=== PATIENT | female | born 2000 | race Caucasian/White ===

== ENCOUNTER 2019-03-15 10:30 | Inpatient (IN) | payer BC ==
[2019-03-15] MEDS ORDERED: Sodium Chloride 0.9% 2.5 ML Syringe FLUSH PRN (10:46)
[2019-03-15] MEDS ORDERED: Terbutaline 1 MG/ML SDV SUBCUT PRN (10:46)
[2019-03-15] MEDS ORDERED: Sodium Chloride 0.9% 10 ML SDV IV PRN (10:46)
[2019-03-15] MEDS ORDERED: Sodium Chloride 0.9% 10 ML Syringe FLUSH PRN (10:46)
[2019-03-15] MEDS ORDERED: Misoprostol 200 MCG Tab PO PRN (10:46)
[2019-03-15] MEDS ORDERED: Carboprost Tromethamine 250 MCG/1 ML Amp IM PRN (10:46)
[2019-03-15] MEDS ORDERED: Water For Irrigation,Sterile 1,000 ML Container IRR PRN (10:46)
[2019-03-15] MEDS ORDERED: Lidocaine 1% 50 ML MDV INJECT PRN (10:46)
[2019-03-15] MEDS ORDERED: Tranexamic Acid 1,000 MG in Sodium Chloride 0.9% 100 ML IV PRN (10:46)
[2019-03-15] MEDS ORDERED: Methylergonovine 0.2 MG/1 ML Amp IM PRN (10:46)
[2019-03-15] MEDS ORDERED: Nalbuphine 10 MG/1 ML Vial IVPUSH PRN (10:46)
[2019-03-15] MEDS ORDERED: Ondansetron 4 MG/2 ML SDV IV PRN (10:46)
[2019-03-15] MEDS ORDERED: Oxytocin/0.9 % Sodium Chloride 30 UNIT/500 ML BAG IV SCH ×2 (11:00)
[2019-03-15] MEDS ORDERED: Misoprostol 25 MCG (1/4 of 100 MCG) Tab VAG PRN (11:30)
[2019-03-15] MEDS: Misoprostol 25 MCG (1/4 of 100 MCG) Tab VAG PRN ×3 (11:47→22:58)
[2019-03-15] MEDS: Lactated Ringers 1,000 ML IV SCH (21:10)
[2019-03-16] MEDS: Butorphanol 1 MG/ML SDV IVPUSH PRN ×2 (04:04→08:01)
[2019-03-16] MEDS: Lactated Ringers 1,000 ML IV SCH ×3 (04:46→19:03)
[2019-03-16] MEDS: Misoprostol 25 MCG (1/4 of 100 MCG) Tab VAG PRN (05:21)
--- NOTE | 2019-03-16 08:56 | PCM.PREANE ---
Preanesthetic Assessment - Anesthesia/Transfusion/Family Hx Anesthesia History: No Prior Anesthesia Family History of Anesthesia Reaction: No Transfusion History: No Prior Transfusion(s) - Review of Systems General: No Symptoms Pulmonary: No Symptoms Cardiovascular: No Symptoms Gastrointestinal: No Symptoms Neurological: No Symptoms Other: Reports: None - Physical Assessment Height: 5 ft 8 in Weight: 99.79 kg ASA Class: 2 Mental Status: Alert & Oriented x3 Airway Class: Mallampati = 2 Dentition: Reports: Normal Dentition Thyro-Mental Finger Breadths: 3 Mouth Opening Finger Breadths: 3 ROM/Head Extension: Full Lungs: Clear to Auscultation, Normal Respiratory Effort Cardiovascular: Regular Rate, Regular Rhythm - Lab Values: Laboratory Last Values WBC 10.39 K/uL (4.0-11.0) 03/15/19 11:04 RBC 4.67 M/uL (4.30-5.90) 03/15/19 11:04 Hgb 13.0 g/dL (12.0-16.0) 03/15/19 11:04 Hct 39.8 % (36.0-46.0) 03/15/19 11:04 MCV 85.2 fL (80.0-98.0) 03/15/19 11:04 MCH 27.8 pg (27.0-32.0) 03/15/19 11:04 MCHC 32.7 g/dL (31.0-37.0) 03/15/19 11:04 RDW Std Deviation 40.3 fl (28.0-62.0) 03/15/19 11:04 RDW Coeff of Cookie 13 % (11.0-15.0) 03/15/19 11:04 Plt Count 183 K/uL (150-400) 03/15/19 11:04 MPV 10.40 fL (7.40-12.00) 03/15/19 11:04 Nucleated RBC % 0.0 /100WBC 03/15/19 11:04 Nucleated RBCs # 0 K/uL 03/15/19 11:04 Blood Type O POSITIVE 03/15/19 11:04 Antibody Screen NEGATIVE 03/15/19 11:04 - Allergies Allergies/Adverse Reactions: Allergies Allergy/AdvReac Type Severity Reaction Status Date / Time melon Allergy Itching Verified 03/15/19 10:46 peanut Allergy Rash Verified 09/01/15 21:53 pollen extracts Allergy Rash Verified 09/01/15 21:53 nuts Allergy Itching Uncoded 03/15/19 10:45 - Acknowledgements Anesthesia Type Planned: Epidural Pt an Appropriate Candidate for the Planned Anesthesia: Yes Alternatives and Risks of Anesthesia Discussed w Pt/Guardian: Yes Pt/Guardian Understands and Agrees with Anesthesia Plan: Yes PreAnesthesia Questionnaire - Past Health History Medical/Surgical History: Denies Medical/Surgical History HEENT History: Reports: None Cardiovascular History: Reports: None Respiratory History: Reports: None Gastrointestinal History: Reports: GERD Genitourinary History: Reports: None [employer] History: Reports: : 2 Para: 0 LMP (Approximate): Musculoskeletal History: Reports: None Neurological History: Reports: None Psychiatric History: Reports: None Endocrine/Metabolic History: Reports: None Hematologic History: Reports: None Immunologic History: Reports: None Oncologic (Cancer) History: Reports: None Dermatologic History: Reports: None - Infectious Disease History Infectious Disease History: Reports: None - SUBSTANCE USE Smoking Status *Q: Never Smoker Tobacco Use Within Last Twelve Months: No Second Hand Smoke Exposure: No Recreational Drug Use History: No - HOME MEDS Home Medications: Home Meds PNV #116/Iron Fumarate/FA/DHA [Expecta Combo Pack] 02/20/19 [History] - CURRENT (IN HOUSE) MEDS Current Meds: Current Medications Butorphanol Tartrate (Stadol) 1 mg IVPUSH Q1H PRN PRN Reason: Pain Last Admin: 03/16/19 08:01 Dose: 1 mg Carboprost Tromethamine (Hemabate Ds) 250 mcg IM ASDIRECTED PRN PRN Reason: Post Hemorrhage Lactated Ringer's (Ringers, Lactated) 1,000 mls @ 150 mls/hr IV ASDIRECTED FABIOLA Last Admin: 03/16/19 04:46 Dose: 999 mls/hr Oxytocin/Sodium Chloride (Oxytocin 30 Unit/500 Ml-Ns) 30 unit in 500 mls @ 999 mls/hr IV TITRATE FABIOLA Oxytocin/Sodium Chloride (Oxytocin 30 Unit/500 Ml-Ns) 30 unit in 500 mls @ 2 mls/hr IV TITRATE FABIOLA; Protocol Tranexamic Acid 1,000 mg/ (Sodium Chloride) 110 mls @ 660 mls/hr IV ONETIME PRN PRN Reason: Bleeding Lidocaine HCl (Xylocaine 1%) 50 ml INJECT ONETIME PRN PRN Reason: Laceration repair Methylergonovine Maleate (Methergine) 0.2 mg IM ASDIRECTED PRN PRN Reason: Post Hemorrhage Misoprostol (Cytotec) 200 mcg PO ONETIME PRN PRN Reason: Post Hemorrhage Misoprostol (Cytotec) 25 mcg VAG ONETIME PRN PRN Reason: Cervical Ripening Misoprostol (Cytotec) 25 mcg VAG Q4H PRN PRN Reason: Cervical Ripening Last Admin: 03/16/19 05:21 Dose: 25 mcg Nalbuphine HCl (Nubain) 10 mg IVPUSH Q1H PRN PRN Reason: Pain (severe 7-10) Ondansetron HCl (Zofran) 4 mg IV Q6H PRN PRN Reason: Nausea/Vomiting Sodium Chloride (Saline Flush) 10 ml FLUSH ASDIRECTED PRN PRN Reason: Keep Vein Open Sodium Chloride (Saline Flush) 2.5 ml FLUSH ASDIRECTED PRN PRN Reason: Keep Vein Open Sodium Chloride (Normal Saline) 10 ml IV ASDIRECTED PRN PRN Reason: IV Use Sterile Water (Sterile Water For Irrigation) 1,000 ml IRR ASDIRECTED PRN PRN Reason: delivery Terbutaline Sulfate (Brethine) 0.25 mg SUBCUT ASDIRECTED PRN PRN Reason: Tacysystole
[2019-03-16] MEDS ORDERED: Sodium Chloride 0.9% 1,000 ML IRR PRN (11:28)
[2019-03-16] MEDS ORDERED: Oxytocin/0.9 % Sodium Chloride 30 UNIT/500 ML BAG IV SCH (14:45)
--- NOTE | 2019-03-16 20:32 | PCM.DEL ---
L & D Note - General Info Date of Service: 03/16/19 Mother's Due Date: 03/07/19 - Delivery Note Labor: Induced by Oxytocin Cervical Ripening Method: Misoprostil Delivery Outcome: Livebirth Presentation: Left Occiput Anterior (THA) Nuchal Cord: None Prep: Other Anesthesia Type: Epidural Amniotic Fluid Description: Meconium Stained Episiotomy Type: None Laceration: None Placenta: Intact, Spontaneous Cord: 3 Vessels Estimated Blood Loss: 200 Resuscitation Needed: No Gepp: Suctioned Score 1 min: 8 Score 5 min: 9 Delivery Comments (Free Text/Narrative):: Liveborn male. - General Info Date of Service: 03/16/19 - Patient Data Weight - Most Recent: 99.79 kg Med Orders - Current: Current Medications Butorphanol Tartrate (Stadol) 1 mg IVPUSH Q1H PRN PRN Reason: Pain Last Admin: 03/16/19 08:01 Dose: 1 mg Carboprost Tromethamine (Hemabate Ds) 250 mcg IM ASDIRECTED PRN PRN Reason: Post Hemorrhage Lactated Ringer's (Ringers, Lactated) 1,000 mls @ 150 mls/hr IV ASDIRECTED FABIOLA Last Admin: 03/16/19 19:03 Dose: 150 mls/hr Oxytocin/Sodium Chloride (Oxytocin 30 Unit/500 Ml-Ns) 30 unit in 500 mls @ 999 mls/hr IV TITRATE FABIOLA Oxytocin/Sodium Chloride (Oxytocin 30 Unit/500 Ml-Ns) 30 unit in 500 mls @ 2 mls/hr IV TITRATE FABIOLA; Protocol Tranexamic Acid 1,000 mg/ (Sodium Chloride) 110 mls @ 660 mls/hr IV ONETIME PRN PRN Reason: Bleeding Sodium Chloride (Sodium Chloride 0.9%) 1,000 mls @ 500 mls/hr IRR ASDIRECTED PRN PRN Reason: Amnioinfusion. Oxytocin/Sodium Chloride (Oxytocin 30 Unit/500 Ml-Ns) 30 unit in 500 mls @ 1 mls/hr IV TITRATE FABIOLA; Protocol Last Infusion: 03/16/19 17:48 Dose: 5 munits/min, 5 mls/hr Lidocaine HCl (Xylocaine 1%) 50 ml INJECT ONETIME PRN PRN Reason: Laceration repair Methylergonovine Maleate (Methergine) 0.2 mg IM ASDIRECTED PRN PRN Reason: Post Hemorrhage Misoprostol (Cytotec) 200 mcg PO ONETIME PRN PRN Reason: Post Hemorrhage Misoprostol (Cytotec) 25 mcg VAG ONETIME PRN PRN Reason: Cervical Ripening Misoprostol (Cytotec) 25 mcg VAG Q4H PRN PRN Reason: Cervical Ripening Last Admin: 03/16/19 05:21 Dose: 25 mcg Nalbuphine HCl (Nubain) 10 mg IVPUSH Q1H PRN PRN Reason: Pain (severe 7-10) Ondansetron HCl (Zofran) 4 mg IV Q6H PRN PRN Reason: Nausea/Vomiting Sodium Chloride (Saline Flush) 10 ml FLUSH ASDIRECTED PRN PRN Reason: Keep Vein Open Sodium Chloride (Saline Flush) 2.5 ml FLUSH ASDIRECTED PRN PRN Reason: Keep Vein Open Sodium Chloride (Normal Saline) 10 ml IV ASDIRECTED PRN PRN Reason: IV Use Sterile Water (Sterile Water For Irrigation) 1,000 ml IRR ASDIRECTED PRN PRN Reason: delivery Terbutaline Sulfate (Brethine) 0.25 mg SUBCUT ASDIRECTED PRN PRN Reason: Tacysystole Last Admin: 03/16/19 11:24 Dose: 0.25 mg Discontinued Medications Fentanyl/Bupivacaine HCl (Wzrisfem-Mhlok-Hr 2 Mcg/Ml-0.125%) Confirm Administered Dose 100 mls @ as directed .ROUTE .STK-MED ONE Stop: 03/16/19 09:02 Fentanyl/Bupivacaine HCl (Xaeyttfl-Wjovc-Ha 2 Mcg/Ml-0.125%) Confirm Administered Dose 100 mls @ as directed .ROUTE .STK-MED ONE Stop: 03/16/19 17:26 - Problem List & Annotations (1) Vaginal delivery SNOMED Code(s): 199366397 Code(s): O80 - ENCOUNTER FOR FULL-TERM UNCOMPLICATED DELIVERY Status: Acute Current Visit: Yes - Problem List Review Problem List Initiated/Reviewed/Updated: Yes - My Orders Last 24 Hours: My Active Orders 03/16/19 11:28 Sodium Chloride 0.9% 1,000 ml IRR ASDIRECTED 03/16/19 14:45 Oxytocin/0.9 % Sodium Chloride [Oxytocin 30 Unit/500 ML-NS] 30 unit in 500 ml IV TITRATE
[2019-03-16] MEDS ORDERED: oxyCODONE 5 MG Tab PO PRN (20:33)
[2019-03-16] MEDS ORDERED: Ibuprofen 400 MG Tab PO PRN (20:33)
[2019-03-16] MEDS ORDERED: Acetaminophen 500 MG Tab PO PRN ×2 (20:33)
[2019-03-16] MEDS ORDERED: Witch Hazel Medicated Pads 40/Jar TOP PRN (20:33)
[2019-03-16] MEDS ORDERED: Benzocaine/Menthol 20%-0.5% Spray 78 GM Cannister TOP PRN (20:33)
[2019-03-16] MEDS ORDERED: Docusate Sodium 100 MG Cap PO PRN (20:33)
[2019-03-16] MEDS ORDERED: Bisacodyl 10 MG Supp RECTAL PRN (20:33)
[2019-03-16] MEDS: Ibuprofen 800 MG Tab PO PRN (23:30)
--- NOTE | 2019-03-16 23:48 | OR ---
SURGEON: Rena Helton M.D. DATE OF PROCEDURE: 03/16/2019 PREOPERATIVE DIAGNOSIS: 41 and 3/7th weeks intrauterine , induction of labor. POSTOPERATIVE DIAGNOSIS: 41 and 3/7th weeks intrauterine , induction of labor. PROCEDURE PERFORMED: Cytotec, Pitocin induction of labor term spontaneous vaginal delivery. ANESTHESIA: Epidural. ESTIMATED BLOOD LOSS: Less than 200 mL. FINDINGS: Liveborn male, scores 8 and 9. Weight is pending at the time of dictation. Placenta spontaneous, Schultze intact with 3 vessels. Perineum intact. BRIEF HISTORY: This is a 18-year-old female G2, P0-0-1-0 presents at 41 and 2/7th weeks gestation for induction of labor. She received 3 doses of Cytotec and had a balloon placed. After the third dose of Cytotec, she was 5 cm dilated. She had artificial rupture of membranes performed at that time. She was known to be group B strep negative. She progressed to 6 cm with minimal progress beyond that. Therefore, Pitocin augmentation was performed. She had episodes of category 1 and category 2 heart tones throughout labor with deep variable decelerations, intermittent variable decelerations, early decelerations, but overall baseline heart tones remained with moderate variability and accelerations also present. Therefore, she was allowed to continue to labor. She received an epidural for pain control. She was noted to be in the right occiput posterior position and attempt was made to rotate the head when she was 9+ cm dilated. The head was unable to be rotated and we were only able to use up to 5 milliunits of Pitocin due to variable decelerations. She had IUPC placed. She had received 2 amnio infusions and she progressed to complete. DESCRIPTION OF PROCEDURE: With the patient in dorsal lithotomy position, the patient pushed over 40 minute time period to a 5+ station at which time the head was delivered spontaneously and atraumatically over the perineum with support with subsequent delivery of the infant's shoulders and body without any difficulty. The was bulb suctioned by nose and mouth and the cord was clamped x2 and cut. After it had ceased to pulsate and the infant was handed to the mother in the presence of the nurse attending delivery. The was a liveborn male, scores 8 and 9, weight is pending at the time of dictation. Cord blood was collected for cord ABGs as well as routine cord blood sampling. Pitocin had been initiated after delivery of the to assist with delivery of the placenta which was delivered spontaneously. Schultze intact with 3 vessels. Upon inspection of the pelvis and perineum, there were no periurethral, vaginal sidewall, cervical, rectal, perineal, or other lacerations. EBL was less than 200 mL. There were no known complications. Mother and baby are in LDR in good condition. LIZETT GAMING /[id number]
[2019-03-17] MEDS: Lanolin 100% Cream 7 GM Tube TOP PRN ×2 (07:57→22:10)
--- NOTE | 2019-03-17 07:57 | PCM48HPAN ---
Post Anesthesia Note - EVALUATION WITHIN 48HRS OF ANESTHETIC Vital Signs in Normal Range: Yes Patient Participated in Evaluation: Yes Respiratory Function Stable: Yes Airway Patent: Yes Cardiovascular Function Stable: Yes Hydration Status Stable: Yes Pain Control Satisfactory: Yes Nausea and Vomiting Control Satisfactory: Yes Mental Status Recovered: Yes Resp Rate: 16
[2019-03-17] MEDS: Ibuprofen 800 MG Tab PO PRN ×3 (07:58→21:33)
--- NOTE | 2019-03-17 08:13 | PCM.PNPP ---
- General Info Date of Service: 03/17/19 Subjective Update: 18yo s/p PPD 1 Functional Status: Reports: Pain Controlled, Tolerating Diet, Ambulating, Urinating - Review of Systems General: Reports: No Symptoms HEENT: Reports: No Symptoms Pulmonary: Reports: No Symptoms Cardiovascular: Reports: No Symptoms Gastrointestinal: Reports: No Symptoms Genitourinary: Reports: No Symptoms Musculoskeletal: Reports: No Symptoms Skin: Reports: No Symptoms Neurological: Reports: No Symptoms Psychiatric: Reports: No Symptoms - General Info Date of Service: 03/17/19 - Patient Data Vital Signs - Most Recent: Last Vital Signs Temp 36.4 C 03/17/19 07:10 Pulse 83 03/17/19 07:10 Resp 16 03/17/19 07:56 BP 132/61 03/17/19 07:10 Pulse Ox 97 03/17/19 07:10 Weight - Most Recent: 99.79 kg Lab Results - Last 24 Hours: Laboratory Results - last 24 hr 03/16/19 03/17/19 Range/Units 20:15 06:18 Hgb 12.1 (12.0-16.0) g/dL Hct 36.9 (36.0-46.0) % Cord ABG pH 7.204 (7.18-7.38) Cord ABG Base Excess -8 (-10--2) Cord VBG pH 7.303 (7.25-7.45) Cord VBG Base Excess -7 (-10--2) Med Orders - Current: Current Medications Acetaminophen (Tylenol Extra Strength) 500 mg PO Q4H PRN PRN Reason: Pain Acetaminophen (Tylenol Extra Strength) 1,000 mg PO Q4H PRN PRN Reason: Pain Benzocaine/Menthol (Dermoplast Pain Relief 20%-0.5% [place]) 78 gm TOP ASDIRECTED PRN PRN Reason: Perineal Comfort Measure Last Admin: 03/16/19 22:47 Dose: 1 spray Bisacodyl (Dulcolax) 10 mg RECTAL ONETIME PRN PRN Reason: Constipation Docusate Sodium (Colace) 100 mg PO BID PRN PRN Reason: Constipation Last Admin: 03/17/19 07:58 Dose: 100 mg Emollient Ointment (Lansinoh Hpa) 0 gm TOP ASDIRECTED PRN PRN Reason: Sore Nipples Last Admin: 03/17/19 07:57 Dose: 1 gm Ibuprofen (Motrin) 400 mg PO Q4H PRN PRN Reason: Pain Ibuprofen (Motrin) 800 mg PO Q6H PRN PRN Reason: Pain Last Admin: 03/17/19 07:58 Dose: 800 mg Oxycodone HCl (Oxycodone) 5 mg PO Q2H PRN PRN Reason: Pain Witch Althea (Tucks) 1 pad TOP ASDIRECTED PRN PRN Reason: comfort care Last Admin: 03/16/19 22:47 Dose: 1 pad Discontinued Medications Butorphanol Tartrate (Stadol) 1 mg IVPUSH Q1H PRN PRN Reason: Pain Last Admin: 03/16/19 08:01 Dose: 1 mg Carboprost Tromethamine (Hemabate Ds) 250 mcg IM ASDIRECTED PRN PRN Reason: Post Hemorrhage Lactated Ringer's (Ringers, Lactated) 1,000 mls @ 150 mls/hr IV ASDIRECTED FABIOLA Last Admin: 03/16/19 19:03 Dose: 150 mls/hr Oxytocin/Sodium Chloride (Oxytocin 30 Unit/500 Ml-Ns) 30 unit in 500 mls @ 999 mls/hr IV TITRATE FABIOLA Oxytocin/Sodium Chloride (Oxytocin 30 Unit/500 Ml-Ns) 30 unit in 500 mls @ 2 mls/hr IV TITRATE FABIOLA; Protocol Tranexamic Acid 1,000 mg/ (Sodium Chloride) 110 mls @ 660 mls/hr IV ONETIME PRN PRN Reason: Bleeding Fentanyl/Bupivacaine HCl (Eqbjjfze-Vculz-Kw 2 Mcg/Ml-0.125%) Confirm Administered Dose 100 mls @ as directed .ROUTE .[facility]-MED ONE Stop: 03/16/19 09:02 Sodium Chloride (Sodium Chloride 0.9%) 1,000 mls @ 500 mls/hr IRR ASDIRECTED PRN PRN Reason: Amnioinfusion. Oxytocin/Sodium Chloride (Oxytocin 30 Unit/500 Ml-Ns) 30 unit in 500 mls @ 1 mls/hr IV TITRATE FABIOLA; Protocol Last Infusion: 03/16/19 19:55 Dose: 4 munits/min, 4 mls/hr Fentanyl/Bupivacaine HCl (Nxszwqam-Vrblx-Tr 2 Mcg/Ml-0.125%) Confirm Administered Dose 100 mls @ as directed .ROUTE .STK-MED ONE Stop: 03/16/19 17:26 Lidocaine HCl (Xylocaine 1%) 50 ml INJECT ONETIME PRN PRN Reason: Laceration repair Methylergonovine Maleate (Methergine) 0.2 mg IM ASDIRECTED PRN PRN Reason: Post Hemorrhage Misoprostol (Cytotec) 200 mcg PO ONETIME PRN PRN Reason: Post Hemorrhage Misoprostol (Cytotec) 25 mcg VAG ONETIME PRN PRN Reason: Cervical Ripening Misoprostol (Cytotec) 25 mcg VAG Q4H PRN PRN Reason: Cervical Ripening Last Admin: 03/16/19 05:21 Dose: 25 mcg Nalbuphine HCl (Nubain) 10 mg IVPUSH Q1H PRN PRN Reason: Pain (severe 7-10) Ondansetron HCl (Zofran) 4 mg IV Q6H PRN PRN Reason: Nausea/Vomiting Sodium Chloride (Saline Flush) 10 ml FLUSH ASDIRECTED PRN PRN Reason: Keep Vein Open Sodium Chloride (Saline Flush) 2.5 ml FLUSH ASDIRECTED PRN PRN Reason: Keep Vein Open Sodium Chloride (Normal Saline) 10 ml IV ASDIRECTED PRN PRN Reason: IV Use Sterile Water (Sterile Water For Irrigation) 1,000 ml IRR ASDIRECTED PRN PRN Reason: delivery Last Admin: 03/16/19 20:41 Dose: 1,000 ml Terbutaline Sulfate (Brethine) 0.25 mg SUBCUT ASDIRECTED PRN PRN Reason: Tacysystole Last Admin: 03/16/19 11:24 Dose: 0.25 mg - Interaction Support Person: - Recovery Exam Fundal Tone: Firm Fundal Level: At Umbilicus Fundal Placement: Left Lochia Amount: Scant Lochia Color: Rubra/Red Perineum Description: Edematous Episiotomy/Laceration: None Bladder Status: Voiding Urinary Elimination: Voided - Exam General: Alert HEENT: Pupils Equal Neck: Supple Lungs: Clear to Auscultation Cardiovascular: Regular Rate, Regular Rhythm GI/Abdominal Exam: Normal Bowel Sounds Extremities: Normal Inspection Skin: Warm Psy/Mental Status: Alert - Problem List & Annotations (1) Vaginal delivery SNOMED Code(s): 086020047 Code(s): O80 - ENCOUNTER FOR FULL-TERM UNCOMPLICATED DELIVERY Status: Acute Current Visit: Yes - Problem List Review Problem List Initiated/Reviewed/Updated: Yes - Assessment Assessment:: 18yo P1 s/p PPD1 , stable , normal lochia , - Plan Plan:: Routine Discharge home today
[2019-03-17 19:53] VITALS: BP 123/94
== END 2019-03-17 22:45 | disposition home or self-care (01) | DRG 560 ==
LOC: MW.OB 10:30 → OBSVTOIN 20:15 → MW.OB 03-16 23:07
PROVIDERS: ADMIT Obstetrics & Gynecology; ATTEND Obstetrics & Gynecology
PROC: 10E0XZZ Delivery of Products of Conception, External Approach (ICD-10-PCS; principal; 2019-03-16)
PROC: 10907ZC Drainage of Amniotic Fluid, Therapeutic from Products of Conception, Via Natural or Artificial Opening (ICD-10-PCS; 2019-03-16)
PROC: 3E033VJ Introduction of Other Hormone into Peripheral Vein, Percutaneous Approach (ICD-10-PCS; 2019-03-16)
PROC: 3E0S3BZ Introduction of Anesthetic Agent into Epidural Space, Percutaneous Approach (ICD-10-PCS; 2019-03-16)
PROC: 00HU33Z Insertion of Infusion Device into Spinal Canal, Percutaneous Approach (ICD-10-PCS; 2019-03-16)
PROC: 10H07YZ Insertion of Other Device into Products of Conception, Via Natural or Artificial Opening (ICD-10-PCS; 2019-03-16)
PROC: 3E0P7VZ Introduction of Hormone into Female Reproductive, Via Natural or Artificial Opening (ICD-10-PCS; 2019-03-16)
DX: O48.0 Post-term pregnancy (principal); O76 Abnormality in fetal heart rate and rhythm complicating labor and delivery; O77.0 Labor and delivery complicated by meconium in amniotic fluid; Z3A.41 41 weeks gestation of pregnancy; Z37.0 Single live birth
CPT/HCPCS: 36415; 51702; 59025; 59200; 59409; 82803; 85014; 85018; 85027; 86850; 86900; 86901; A9270-GY; J0595; J2590; J3105; J7120